=== PATIENT | male | born 1990 | race Caucasian/White ===

== ENCOUNTER 2017-06-08 18:07 | Emergency (ER) | payer SELFPAY ==
[~2017-06-08] VITALS: Ht 167.6 cm; Wt 49.9 kg
[2017-06-08] MEDS ORDERED: ARIP10TA17 (18:29)
[2017-06-08] MEDS ORDERED: MIRT15TA6 (18:29)
[2017-06-08] MEDS ORDERED: GABA-488 (18:29)
[2017-06-08 19:09] LABS: BASOPHILS % (AUTO) 0 % (0-10); EOSINOPHILS # (AUTO) 0.3 10^3/uL (0.0-0.3); EOSINOPHILS % (AUTO) 3 % (0-10); LYMPHOCYTES # (AUTO) 3.5 X 10^3 (1.0-4.0); LYMPHOCYTES % (AUTO) 36 % (12-44); MEAN CORPUSCULAR HEMOGLOBIN 33 PG (25-34); MEAN CORPUSCULAR HGB CONC 35 G/DL (32-36); MEAN CORPUSCULAR VOLUME 95 FL (80-99); MEAN PLATELET VOLUME 9.6 FL (7.4-10.4); MONOCYTES # (AUTO) 0.9 X 10^3 (0.0-1.0); MONOCYTES % (AUTO) 9 % (0-12); NEUTROPHILS # (AUTO) 5.1 X 10^3 (1.8-7.8); NEUTROPHILS % (AUTO) 52 % (42-75); PLATELET COUNT 270 10^3/uL (130-400); RED BLOOD COUNT 4.07 10^6/uL (4.35-5.85); RED CELL DISTRIBUTION WIDTH 11.9 % (10.0-14.5); WHITE BLOOD COUNT 9.8 10^3/uL (4.3-11.0)
[2017-06-08 19:28] LABS: ALANINE AMINOTRANSFERASE 16 U/L (0-55); ALBUMIN 3.9 GM/DL (3.2-4.5); ANION GAP 10 MMOL/L (5-14); ASPARTATE AMINO TRANSFERASE 28 U/L (5-34); BILIRUBIN,TOTAL 0.5 MG/DL (0.1-1.0); BLOOD UREA NITROGEN 16 MG/DL (7-18); BUN/CREATININE RATIO 19; CALCIUM 8.8 MG/DL (8.5-10.1); CARBON DIOXIDE 25 MMOL/L (21-32); CHLORIDE 101 MMOL/L (98-107); CREATININE SERUM 0.86 MG/DL (0.60-1.30); GFR ESTIMATED > 60; GLUCOSE 102 MG/DL (70-105); POTASSIUM 3.5 MMOL/L (3.6-5.0); SODIUM 136 MMOL/L (135-145); TOTAL PROTEIN 6.8 GM/DL (6.4-8.2); hs C REACTIVE PROTEIN 2.86 MG/DL (0.00-0.50)
[2017-06-08 19:29] LABS: ERYTHROCYTE SEDIMENTATION RATE 8 MM/HR (0-15)
--- NOTE | 2017-06-08 19:37 | ED General ---
General Chief Complaint: Skin/Wound Problems Stated Complaint: LEFT ARM SWELLING Nursing Triage Note: L hand red and swelling since this morning Nursing Sepsis Screen: No Definite Risk Source of Information: Patient Exam Limitations: No Limitations History of Present Illness Time Seen by Provider: 18:38 Initial Comments This 26-year-old young man presents to the emergency room with complaints of left hand and arm swelling and redness that started this morning and has become progressively worse. He has not noted this problem in the past. He notes that he has venous dilatation of the left upper extremity all the way through his shoulder when compared with the right. 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 He has no pain to palpation or pain with range of motion. There is no itching. Patient denies any IV substance abuse. Allergies and Home Medications Allergies Coded Allergies: No Known Drug Allergies (Unverified , 06/08/17) Home Medications Aripiprazole 10 Mg Tablet, (Reported) Gabapentin 300 Mg Capsule, (Reported) Mirtazapine 15 Mg Tablet, (Reported) Rivaroxaban 1 Each Tab.ds.pk, 1 EACH PO UD, #51 15mg by mouth twice daily x 21 days then 20mg by mouth daily Prescribed by: CLAUDIO PANDA on 06/08/172111 Constitutional: no symptoms reported EENTM: no symptoms reported Respiratory: no symptoms reported Cardiovascular: see HPI Gastrointestinal: no symptoms reported Genitourinary: no symptoms reported Musculoskeletal: see HPI Skin: see HPI Psychiatric/Neurological: No Symptoms Reported Hematologic/Lymphatic: No Symptoms Reported Immunological/Allergic: no symptoms reported Past Otjkqdb-Xgaiwj-Ozexxh Hx Patient Social History Alcohol Use: Denies Use Recreational Drug Use: Yes Drug of Choice: THC Smoking Status: Current Everyday Smoker Type Used: Cigarettes Recent Foreign Travel: No Contact w/Someone Who Travel: No Recent Infectious Disease Expo: No Recent Hopitalizations: No Physical Abuse: No Sexual Abuse: No Surgeries History of Surgeries: No Respiratory History of Respiratory Disorde: No Cardiovascular History of Cardiac Disorders: No Neurological History of Neurological Disord: No Reproductive System Hx Reproductive Disorders: No Genitourinary History of Genitourinary Disor: No Gastrointestinal History of Gastrointestinal Di: No Musculoskeletal History of Musculoskeletal Dis: No Endocrine History of Endocrine Disorders: No HEENT History of HEENT Disorders: No Cancer History of Cancer: No Psychosocial History of Psychiatric Problem: Yes (anger issues) Behavioral Health Disorders: ADD/ADHD Suicide Risk Score: 0 Integumentary History of Skin or Integumenta: No Blood Transfusions History of Blood Disorders: No Family Medical History Significant Family History: No Pertinent Family Hx Physical Exam Vital Signs Vital Sign - Last 12Hours 06/08/17 18:26 Temp 97.9 Pulse 68 Resp 18 B/P (MAP) 129/81 Pulse Ox 96 Capillary Refill : Less Than 3 Seconds General Appearance: No Apparent Distress, WD/WN HEENT: PERRL/EOMI, Normal ENT Inspection Neck: Normal Inspection Respiratory: Lungs Clear, Normal Breath Sounds, No Accessory Muscle Use, No Respiratory Distress Cardiovascular: Regular Rate, Rhythm, Normal Peripheral Pulses, Other (edema of the left upper extremity extending into the shoulder with venous dilatation. 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 Norm as Tested Skin: Warm/Dry, Erythema (left upper extremity, blanching) Progress/Results/Core Measures Results/Orders Lab Results Laboratory Tests Test 06/08/17 18:55 Range/Units White Blood Count 9.8 4.3-11.0 10^3/uL Red Blood Count 4.07 L 4.35-5.85 10^6/uL Hemoglobin 13.4 13.3-17.7 G/DL Hematocrit 39 L 40-54 % Mean Corpuscular Volume 95 80-99 FL Mean Corpuscular Hemoglobin 33 25-34 PG Mean Corpuscular Hemoglobin Concent 35 32-36 G/DL Red Cell Distribution Width 11.9 10.0-14.5 % Platelet Count 270 130-400 10^3/uL Mean Platelet Volume 9.6 7.4-10.4 FL Neutrophils (%) (Auto) 52 42-75 % Lymphocytes (%) (Auto) 36 12-44 % Monocytes (%) (Auto) 9 0-12 % Eosinophils (%) (Auto) 3 0-10 % Basophils (%) (Auto) 0 0-10 % Neutrophils # (Auto) 5.1 1.8-7.8 X 10^3 Lymphocytes # (Auto) 3.5 1.0-4.0 X 10^3 Monocytes # (Auto) 0.9 0.0-1.0 X 10^3 Eosinophils # (Auto) 0.3 0.0-0.3 10^3/uL Basophils # (Auto) 0.0 0.0-0.1 10^3/uL Erythrocyte Sedimentation Rate 8 0-15 MM/HR D-Dimer 0.52 H 0.00-0.49 UG/ML Sodium Level 136 135-145 MMOL/L Potassium Level 3.5 L 3.6-5.0 MMOL/L Chloride Level 101 98-107 MMOL/L Carbon Dioxide Level 25 21-32 MMOL/L Anion Gap 10 5-14 MMOL/L Blood Urea Nitrogen 16 7-18 MG/DL Creatinine 0.86 0.60-1.30 MG/DL Estimat Glomerular Filtration Rate > 60 BUN/Creatinine Ratio 19 Glucose Level 102 70-105 MG/DL Calcium Level 8.8 8.5-10.1 MG/DL Total Bilirubin 0.5 0.1-1.0 MG/DL Aspartate Amino Transf (AST/SGOT) 28 5-34 U/L Alanine Aminotransferase (ALT/SGPT) 16 0-55 U/L Alkaline Phosphatase 54 40-136 U/L C-Reactive Protein High Sensitivity 2.86 H 0.00-0.50 MG/DL Total Protein 6.8 6.4-8.2 GM/DL Albumin 3.9 3.2-4.5 GM/DL My Orders Orders - CLAUDIO BORRERO MD Cbc With Automated Diff (06/08/17 18:48) Comprehensive Metabolic Panel (06/08/17 18:48) Hs C Reactive Protein (06/08/17 18:48) Erythrocyte Sedimentation Rate (06/08/17 18:48) Fibrin Degradation Products (06/08/17 18:48) Saline Lock/Iv-Start (06/08/17 18:48) Us Left Up Ext Arterial [id number] (06/08/17 18:48) Us Venous Upper Ext Lt (06/08/17 18:48) Ct Angio Chest W (06/08/17 19:44) Iohexol Injection (Omnipaque 350 Mg/Ml 1 (06/08/17 20:00) Ns (Ivpb) (Sodium Chloride 0.9% Ivpb Bag (06/08/17 20:00) Pharmacy Communication (Pharmacy Communi (06/08/17 19:48) Sodium Chloride Flush (Catheter Flush Sy (06/08/17 20:00) Iohexol Injection (Omnipaque 350 Mg/Ml 1 (06/08/17 20:15) Rivaroxaban Tablet (Xarelto Tablet) (06/08/17 20:45) Medications Given in ED Vital Signs/I&O Blood Pressure Mean: 97 Progress Note #1: Time: 19:33 Progress Note Labs were reviewed. D-dimer is minimally elevated. Patient is to ultrasound now. I discussed potential for further imaging with Dr. Blackwell, radiologist on- call. If ultrasound does not reveal any pathology, then CT of the chest with contrast including a 2 minute delay series would be recommended. Blood pressures were checked in each arm with minimal variants. Blood pressure in the right arm was 146/83. Left arm was 136/87. Progress Note #2: Time: 19:45 Progress Note Ultrasound was discussed with the hearing aid repair technician. There is a clot in the subclavian vein extending beyond what can be visualized on the ultrasound. No trigger or cause of the clot could be identified. Therefore, I made the decision to further investigate with CT imaging. CT angiogram of the chest was ordered along with a two-minute delay for better evaluation of the venous structures. Progress Note #3: Progress Note No further abnormalities were identified on the CT scan. Patient needs anticoagulation therapy but has no financial resources and no primary care provider. Care was discussed with Dr. Wilks who will try to help him through [facility] resources. See discharge instructions. A dose of Xarelto was administered prior to discharge. Diagnostic Imaging Diagonstic Imaging: Ultrasound Comments Venous ultrasound of the left upper extremity discussed with the hearing aid repair technician and report reviewed. See report below: NAME: KEL WYLIE [facility] REC#: [id number] PT STATUS: REG ER : 1990 PHYSICIAN: CLAUDIO BORRERO MD ADMIT DATE: 06/08/17/ER Signed Date of Exam: 06/08/17 US VENOUS UPPER EXT LT PROCEDURE: US venous upper extremity left. TECHNIQUE: Multiple realtime grayscale images were obtained of left upper extremity in various projections. Duplex Doppler and and color Doppler images were also obtained. INDICATION: Left upper extremity swelling FINDINGS: The examination demonstrates occlusive thrombus centrally within the left subclavian vein. Nonocclusive thrombus is present in the mid subclavian vein. Peripheral aspect of the subclavian vein and the arm veins appear normal. Internal jugular vein is patent. IMPRESSION: There is occlusive thrombus within the central portion of the left subclavian vein. CT scanning is NOT needed for further evaluation. Dictated by: Dictated on workstation # [id number] Dict: 06/08/172001 Trans: 06/08/172009 Interpreted by: JESUS BLACKWELL MD Electronically signed by: JESUS BLACKWELL MD 06/08/172009 Diagonstic Imaging: Ultrasound Comments Arterial ultrasound of the left upper extremity discussed with the hearing aid repair technician and report reviewed. See report below: NAME: KEL WYLIE [facility] REC#: [id number] PT STATUS: REG ER : 1990 PHYSICIAN: CLAUDIO BORRERO MD ADMIT DATE: 06/08/17/ER Signed Date of Exam: 06/08/17 US LEFT UP EXT ARTERIAL [id number] INDICATION: Acute left upper extremity swelling. COMPARISON STUDIES: Left arm venous Doppler from the same day. FINDINGS: Left upper extremity arterial Doppler demonstrates triphasic waveforms. No stenosis or areas of velocity accelerations are identified. IMPRESSION: Normal left upper extremity arterial Doppler. Dictated by: Dictated on workstation # [id number] Dict: 06/08/172004 Trans: 06/08/172009 Interpreted by: JESUS BLACKWELL MD Electronically signed by: JESUS BLACKWELL MD 06/08/172009 Diagonstic Imaging: CT Plain Films/CT/US/NM/MRI: chest Comments CT angiogram of the chest viewed by me and report reviewed. See report below: NAME: INESSAKEL [facility] REC#: [id number] PT STATUS: REG ER : 1990 PHYSICIAN: CLAUDIO BORRERO MD ADMIT DATE: 06/08/17/ER Signed Date of Exam: 06/08/17 CT ANGIO CHEST W INDICATION: Blood clot in the left arm, evaluate for pulmonary emboli. FINDINGS: CTA of the chest demonstrates no evidence of a pulmonary emboli. No aortic dissection or aneurysm is present. Takeoff of the great vessels appears normal. Delayed images demonstrate thrombus in the central portion of the subclavian vein. The brachiocephalic vein and SVC are patent. No pleural or pericardial effusions are present. The visualized portions of the abdomen are normal. Some infiltrates are seen in the medial base of the right middle lobe. No endobronchial lesions are present. The osseous structures are normal. IMPRESSION: 1. No pulmonary emboli is present. 2. Thrombus is present centrally in the left subclavian vein. The brachiocephalic vein and SVC are patent. 3. Some mild infiltrate is present, medially, in the base of the right middle lobe. Dictated by: Dictated on workstation # [id number] Dict: 06/08/172018 Trans: 06/08/172035 Interpreted by: JESUS BLACKWELL MD Electronically signed by: JESUS BLACKWELL MD 06/08/172035 Departure Impression Impression: Primary Impression: Deep venous thrombosis of left upper extremity Qualified Codes: I82.622 - Acute embolism and thrombosis of deep veins of left upper extremity Disposition: 01 HOME, SELF-CARE Condition: Stable Departure-Patient Inst. Decision time for Depature: 20:50 Referrals: NO,LOCAL PHYSICIAN (PCP) Primary Care Physician Patient Instructions: Deep Vein Thrombosis (Blood Clots in the Legs) Add. Discharge Instructions: It is very important that you take your medication as prescribed and do not miss any doses. The [facility] may be able to help you with your medications. Dr. Wilks at [facility] is aware of your situation. She may be contacted by the clinic if further assistance is needed. If you're unable to successfully get your medication from [facility], you may check back into the emergency room to receive your next dose and to seek assistance from the social workers. If all else fails, please call Dr. Borrero at [phone]. Follow-up with a primary care provider as soon as possible. Work toward quitting smoking as soon as possible as smoking contributes to blood clot risk. Seek assistance from a primary care provider to quit if necessary. The [address] [phone] All discharge instructions reviewed with patient and/or family. Voiced understanding. Scripts Rivaroxaban (Xarelto Starter Pack) 1 Each Tab.ds.pk 1 EACH PO UD, #51 PKG 15mg by mouth twice daily x 21 days then 20mg by mouth daily Prov: CLAUDIO BORRERO MD 06/08/17 Copy Copies To 1: MAUDE WILKS MD, JOSHUA T MD Jun 08, 2017 19:37
[2017-06-08] MEDS ORDERED: NS 100 ML (IVPB) BAG IV ONE (20:00)
[2017-06-08] MEDS ORDERED: CATHETER FLUSH 10 ML SYR IV PRN (20:00)
[2017-06-08] MEDS ORDERED: IOHEXOL 350 MG/ML 150 ML (OMNIPAQUE 350) VIAL IV ONE (20:00)
--- NOTE | 2017-06-08 20:07 | Diagnostic Imaging Report ---
INDICATION: Acute left upper extremity swelling. COMPARISON STUDIES: Left arm venous Doppler from the same day. FINDINGS: Left upper extremity arterial Doppler demonstrates triphasic waveforms. No stenosis or areas of velocity accelerations are identified. IMPRESSION: Normal left upper extremity arterial Doppler. Dictated by: Dictated on workstation # [id number]
--- NOTE | 2017-06-08 20:07 | Diagnostic Imaging Report ---
PROCEDURE: US venous upper extremity left. TECHNIQUE: Multiple realtime grayscale images were obtained of left upper extremity in various projections. Duplex Doppler and and color Doppler images were also obtained. INDICATION: Left upper extremity swelling FINDINGS: The examination demonstrates occlusive thrombus centrally within the left subclavian vein. Nonocclusive thrombus is present in the mid subclavian vein. Peripheral aspect of the subclavian vein and the arm veins appear normal. Internal jugular vein is patent. IMPRESSION: There is occlusive thrombus within the central portion of the left subclavian vein. CT scanning is NOT needed for further evaluation. Dictated by: Dictated on workstation # [id number]
[2017-06-08] MEDS ORDERED: IOHEXOL 350 MG/ML 100 ML (OMNIPAQUE 350) VIAL IV ONE (20:15)
--- NOTE | 2017-06-08 20:35 | Diagnostic Imaging Report ---
INDICATION: Blood clot in the left arm, evaluate for pulmonary emboli. FINDINGS: CTA of the chest demonstrates no evidence of a pulmonary emboli. No aortic dissection or aneurysm is present. Takeoff of the great vessels appears normal. Delayed images demonstrate thrombus in the central portion of the subclavian vein. The brachiocephalic vein and SVC are patent. No pleural or pericardial effusions are present. The visualized portions of the abdomen are normal. Some infiltrates are seen in the medial base of the right middle lobe. No endobronchial lesions are present. The osseous structures are normal. IMPRESSION: 1. No pulmonary emboli is present. 2. Thrombus is present centrally in the left subclavian vein. The brachiocephalic vein and SVC are patent. 3. Some mild infiltrate is present, medially, in the base of the right middle lobe. Dictated by: Dictated on workstation # [id number]
[2017-06-08] MEDS ORDERED: RIVAROXABAN 15 MG TABLET (XARELTO) PO ONE (20:45)
[2017-06-08] MEDS ORDERED: RIVA1TAB PO (21:12)
[2017-06-08 21:19] VITALS: BP 128/78
== END 2017-06-08 21:20 | disposition home or self-care (01) ==
LOC: ER 18:09
DX: I82.622 Acute embolism and thrombosis of deep veins of left upper extremity (principal); F90.9 Attention-deficit hyperactivity disorder, unspecified type; F17.210 Nicotine dependence, cigarettes, uncomplicated
CPT/HCPCS: 36415; 71275; 80053; 85025; 85379; 85652; 86141; 93931

== ENCOUNTER 2017-12-03 17:42 | Emergency (ER) | payer SELFPAY ==
[~2017-12-03] VITALS: Ht 167.6 cm; Wt 54.4 kg
[~2017-12-03 17:42] MED LIST: ARIP10TA17; GABA-488; MIRT15TA6; RIVA1TAB PO
--- OUTSIDE RECORDS SUMMARY | 2017-12-03 17:49 | XMS REPORT ---
Author Author KIRSTEN GENTILE Organization [facility] Address [address] [place] [address] Care Team Providers Care Power Reactor Supervisor Name Role Phone SEFERINO KIRSTEN Unavailable PROBLEMS Type Condition ICD9-CM Code DGS11-QA Code Onset Dates Condition Status SNOMED Code Problem Thrombocytosis D47.3 Active 9865094 Problem Elevated hemoglobin A1c R73.09 Active 195726769 Problem Substance abuse F19.10 Active 55135141 Problem Generalized anxiety disorder F41.1 Active 65841707 Problem Adjustment disorder with anxious mood F43.22 Active 37686175 Problem Severe episode of recurrent major depressive disorder, without psychotic features F33.2 Active 83754733 Problem Panic attacks F41.0 Active 747128970 Problem Alcohol abuse, in 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 Active 864345077 ALLERGIES No Information ENCOUNTERS Encounter Location Date Diagnosis [place] [id number] [place] [phone] December, [place] [id number] [place] [address] [phone] 16 Oct, 2017 Acute bronchitis due to other specified organisms J20.8 [place] [id number] [place] [address] [phone] [phone] 15 Jul, 2017 Severe episode of recurrent major depressive disorder, without psychotic features F33.2 [place] [id number] [place] [address] [phone] 6[address] 10 Jun, 2017 Severe episode of recurrent major depressive disorder, without psychotic features F33.2 and Adjustment disorder with anxious mood F43.22 [facility] [id number] [place] [address] [phone]- [phone] 08 Jun, 2017 [place] [id number] [place] [address] [phone]- 4107 16 May, 2017 Encounter to establish care Z76.89 ; Substance abuse F19.10 and Acute deep vein thrombosis (DVT) of left upper extremity, unspecified vein I82.622 [place] [address] [place] [address] [phone] 0832 13 May, 2017 Encounter to establish care Z76.89 ; Substance abuse F19.10 and Acute deep vein thrombosis (DVT) of left upper extremity, unspecified vein I82.622 [place] [id number] [place] [address] 85096- 9973 04 May, 2017 Panic attacks F41.0 ; Alcohol abuse, in 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 ; Adjustment disorder with anxious mood F43.22 ; Severe episode of recurrent major depressive disorder, without psychotic features F33.2 and Generalized anxiety disorder F41.1 [place] [address] [place] [address] [phone] Apr, Severe episode of recurrent major depressive disorder, without psychotic features F33.2 ; Adjustment disorder with anxious mood F43.22 and Alcohol abuse, in 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 [place] [address] [place] [address] 11434- [phone] Apr, Panic attacks F41.0 ; Alcohol abuse, in 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 ; Adjustment disorder with anxious mood F43.22 ; Severe episode of recurrent major depressive disorder, without psychotic features F33.2 and Generalized anxiety disorder F41.1 [place] [address] [place] [address] 34556- 7852 Apr, Severe episode of recurrent major depressive disorder, without psychotic features F33.2 ; Adjustment disorder with anxious mood F43.22 ; Alcohol abuse, in 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 and Other longterm (current) drug therapy Z79.899 [place] [address] [place] [address]31- [phone] Mar, Severe episode of recurrent major depressive disorder, without psychotic features F33.2 ; Adjustment disorder with anxious mood F43.22 ; Alcohol abuse, in 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 and Panic attacks F41.0 [place] [address] [address] Mar, Severe episode of recurrent major depressive disorder, without psychotic features F33.2 ; Adjustment disorder with anxious mood F43.22 and Alcohol abuse, in 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 [facility] [address] [address] Mar, Severe episode of recurrent major depressive disorder, without psychotic features F33.2 ; Adjustment disorder with anxious mood F43.22 ; Alcohol abuse, in 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 and Panic attacks F41.0 [facility] [address] [address] 02 Mar, 2017 Severe episode of recurrent major depressive disorder, without psychotic features F33.2 ; Adjustment disorder with anxious mood F43.22 and Alcohol abuse, in 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 [place] [address] [address] 02 Mar, 2017 Severe episode of recurrent major depressive disorder, without psychotic features F33.2 ; Adjustment disorder with anxious mood F43.22 and Alcohol abuse, in 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 [facility] [address] [address] 24 Feb, 2017 Severe episode of recurrent major depressive disorder, without psychotic features F33.2 ; Adjustment disorder with anxious mood F43.22 and Alcohol abuse, in 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 [facility] [address] [address] Feb, Adjustment disorder with anxious mood F43.22 and Severe episode of recurrent major depressive disorder, without psychotic features F33.2 [facility] [address] [address] Feb, Severe episode of recurrent major depressive disorder, without psychotic features F33.2 [facility] [address] [address] Sep, [facility] [id number] [place] [phone] Feb, IMMUNIZATIONS No Known Immunizations SOCIAL HISTORY Never Assessed REASON FOR VISIT intake PLAN OF CARE Activity Details Follow Up 1 Week Reason:Depression VITAL SIGNS MEDICATIONS Unknown Medications RESULTS No Results PROCEDURES Procedure Date Ordered Result Body Site Psych diagnostic evaluation, new patient March 15, 2017 INSTRUCTIONS MEDICATIONS ADMINISTERED No Known Medications MEDICAL (GENERAL) HISTORY Type Description Date Medical History hay fever Medical History Blood clot left arm Medical History Anxiety Medical History Depression Hospitalization History Denies any past psychiatric hospitalization
[2017-12-03] MEDS ORDERED: PRD10T PO (18:11)
[2017-12-03] MEDS ORDERED: AMOX-358 PO (18:11)
[2017-12-03] MEDS ORDERED: GUAI1TBM19 PO (18:11)
[2017-12-03] MEDS ORDERED: FLUT9.9S NS (18:11)
--- NOTE | 2017-12-03 18:13 | ED Cough/URI ---
General Chief Complaint: Cough/Cold/Flu Symptoms Stated Complaint: COUGH/CHEST CONGESTION Nursing Triage Note: Patient advises a cough and congestion for several weeks that has not improved. He denies hx. of fever but states he will periodically cough up thick secretions. Source: patient History of Present Illness Date Seen by Provider: Dec 03, 2017 Time Seen by Provider: 17:55 Initial Comments PT C/O COUGH/CONGESTION, SINUS DRAINAGE FOR AT LEAST A MONTH HAS HAD SINUS PRESSURE OCCASIONALLY HAS THICK MUCOUS NO FEVER NO CHEST PAIN OR SHORTNESS OF BREATH SEEN AT [facility] 2 WEEKS AGO FOR THIS PROBLEM AND WAS GIVEN RX FOR Z-PACK AND UNKNOWN ALLERGY MEDICATION HAS NOT TAKEN ANYTHING ELSE FOR SYMPTOMS SYMPTOMS NOT IMPROVED, BUT ARE NOT WORSE, AND ARE NO DIFFERENT TODAY ALSO WANTS A WORK NOTE STATES HE HAS YEAR ROUND ALLERGIES, BUT DOES NOT TAKE ANYTHING FOR ALLERGIES, AND HAS MULTIPLE PETS IN HOME AND HE CONTINUES TO SMOKE. PCP: [facility] Allergies and Home Medications Allergies Coded Allergies: No Known Drug Allergies (Unverified , 12/03/17) Home Medications Amoxicillin/Potassium Clav 1 Each Tablet, 1 EACH PO BID Prescribed by: KEARA SMITH on 12/03/171810 Fluticasone Propionate 9.9 Ml [place].susp, 2 SPRAYS NS BID Prescribed by: KEARA SMITH on 12/03/171810 Guaifenesin/Dextromethorphan 1 Each Tbmp.12hr, 1 EACH PO BID Prescribed by: KEARA SMITH on 12/03/171810 Prednisone 10 Mg Tab, 40 MG PO DAILY Prescribed by: KEARA SMITH on 12/03/171810 Rivaroxaban 1 Each Tab.ds.pk, 1 EACH PO UD 15mg by mouth twice daily x 21 days then 20mg by mouth daily Prescribed by: CLAUDIO PANDA on 06/08/172111 Patient Home Medication List Home Medication List Reviewed: Yes Review of Systems Constitutional: no symptoms reported EENTM: see HPI Respiratory: see HPI, cough, No short of breath Cardiovascular: no symptoms reported Gastrointestinal: no symptoms reported Genitourinary: no symptoms reported Musculoskeletal: no symptoms reported Skin: no symptoms reported Psychiatric/Neurological: No Symptoms Reported Hematologic/Lymphatic: Other (DVT LEFT ARM 05/2017--ON XARELTO) Immunological/Allergic: no symptoms reported Past Haeycev-Trkzxu-Ogkjdf Hx Patient Social History Alcohol Use: Denies Use Recreational Drug Use: Yes Drug of Choice: THC Smoking Status: Current Everyday Smoker Type Used: Cigarettes Recent Foreign Travel: No Contact w/Someone Who Travel: No Recent Infectious Disease Expo: No Recent Hopitalizations: No Physical Abuse: No Sexual Abuse: No Seasonal Allergies Seasonal Allergies: No Past Medical History Surgeries: No Respiratory: No Cardiac: Yes (DVT LEFT ARM 05/2017) Deep Vein Thrombosis Neurological: No Reproductive Disorders: No Genitourinary: No Gastrointestinal: No Musculoskeletal: No Endocrine: No HEENT: No Cancer: No Psychosocial: Yes (anger issues) ADD/ADHD, Anxiety Nursing Suicide Risk Score: 0 Integumentary: No Blood Disorders: Yes (DVT LEFT ARM 05/2017--TREATED WITH XARELTO) Family Medical History No Pertinent Family Hx Physical Exam Vital Signs Vital Signs - First Documented 12/03/17 17:55 Temp 98.5 Pulse 100 Resp 18 B/P (MAP) 140/82 (101) Pulse Ox 98 O2 Delivery Room Air Capillary Refill : Less Than 3 Seconds General Appearance: no apparent distress, thin, other (REEKS OF CIGARETTES) HEENT: PERRL/EOMI, TMs normal, pharynx normal, other (MILD MAXILLARY SINUS TENDERNESS, MILD MUCOSAL EDEMA. MILD CLEAR POST NASAL DRAINAGE) Neck: non-tender, full range of motion, supple, normal inspection Respiratory: normal breath sounds, no respiratory distress, no accessory muscle use Cardiovascular: normal peripheral pulses, regular rate, rhythm, no murmur Neurologic/Psychiatric: emergency management director II-XII nml as tested, no motor/sensory deficits, alert, oriented x 3, other (SOMEWHAT ANXIOUS) Skin: normal color, warm/dry, tattoos/piercings (TATTOOS) Progress/Results/Core Measures Suspected Sepsis Recent Fever Within 48 Hours: No Infection Criteria Present: None New/Unexplained Altered Menta: No Sepsis Screen: No Definite Risk Sepsis Diagnosis: SIRS Temperature:98.5 Pulse: 100 Respiratory Rate: 18 Blood Pressure 140 /82 Mean: 101 Results/Orders My Orders Orders - KEARA SMITH DO Amoxicillin/Clavulanate Tablet (Augmenti (12/04/17 07:00) Vital Signs/I&O 12/03/17 12/03/17 17:55 17:55 Temp 98.5 Pulse 100 Resp 18 B/P (MAP) 140/82 (101) Pulse Ox 98 O2 Delivery Room Air Room Air Capillary Refill : Less Than 3 Seconds Blood Pressure Mean: 101 Departure Impression Primary Impression: Sinusitis Disposition: 01 HOME, SELF-CARE Condition: Stable Departure-Patient Inst. Referrals: COUNT INCLUDES [facility] (PCP/Family) Primary Care Physician Patient Instructions: Sinusitis, Adult (DC) Add. Discharge Instructions: TYLENOL AND MOTRIN NEEDED FOR PAIN OR FEVER LOTS OF CLEAR LIQUIDS FOLLOW UP WITH [facility] IN 4-5 DAYS IF NO BETTER All discharge instructions reviewed with patient and/or family. Voiced understanding. Scripts Prednisone (Prednisone) 10 Mg Tab 40 MG PO DAILY, #12 TAB Prov: KEARA SMITH DO 12/03/17 Guaifenesin/Dextromethorphan (Mucinex Dm ER 1,200-60 mg Tab) 1 Each Tbmp.12hr 1 EACH PO BID for 10 Days, #20 EA Prov: KEARA SMITH DO 12/03/17 Fluticasone Propionate (Flonase Allergy Relief) 9.9 Ml [place].susp 2 SPRAYS NS BID, #1 SPRAY Prov: KEARA SMITH DO 12/03/17 Amoxicillin/Potassium Clav (Augmentin 875-125 Tablet) 1 Each Tablet 1 EACH PO BID for INFECTION, #30 TAB Prov: KEARA SMITH DO 12/03/17 Work/School Note: Work Release Form Date Seen in the Emergency Department: Dec 03, 2017 KEARA SMITH DO Dec 03, 2017 18:13
[2017-12-03] MEDS ORDERED: AUGMENTIN 875 MG TAB (AMOXICILLIN/CLAVULANATE) ONE (18:19)
[2017-12-03 18:30] VITALS: BP 140/82
[2017-12-04] MEDS ORDERED: AUGMENTIN 875 MG TAB (AMOXICILLIN/CLAVULANATE) PO SCH (07:00)
== END 2017-12-03 18:29 | disposition home or self-care (01) ==
LOC: EDUNIT# 17:42 → ER 17:45
DX: J32.9 Chronic sinusitis, unspecified (principal); F41.9 Anxiety disorder, unspecified; F90.9 Attention-deficit hyperactivity disorder, unspecified type; F12.90 Cannabis use, unspecified, uncomplicated; F17.210 Nicotine dependence, cigarettes, uncomplicated; Z79.52 Long term (current) use of systemic steroids; Z86.718 Personal history of other venous thrombosis and embolism
CPT/HCPCS: 87804; 99283